=== PATIENT | male | born 1980 | race Two or more races ===

== ENCOUNTER 2022-04-17 11:42 | Emergency (ER) | payer SELFPAY ==
[~2022-04-17] VITALS: Ht 170.2 cm; Wt 73.0 kg
[2022-04-17 11:55] VITALS: BP 149/95
[2022-04-17] MEDS ORDERED: KETOROLAC TROMETH 60MG/2ML VIAL IM ONE (15:15)
[2022-04-17] MEDS ORDERED: cefTRIAXone SOD 1,000 MG VL IM ONE (15:15)
[2022-04-17] MEDS ORDERED: AMOX-277 PO (15:17)
[2022-04-17] MEDS ORDERED: IBUP800T27 PO (15:17)
[2022-04-17] MEDS ORDERED: BENZOCAINE (DENTAL) 20 % SPRAY 60ML MT ONE (15:30)
== END 2022-04-17 16:11 | disposition home or self-care (01) ==
LOC: ER 11:42
DX: K04.7 Periapical abscess without sinus (principal)
CPT/HCPCS: 96372; 99284; J0696; J1885